=== PATIENT | male | born 1980 | race African-American/Black ===

== ENCOUNTER 2018-03-30 09:53 | Emergency (ER) | payer SELFPAY ==
[~2018-03-30] VITALS: Ht 167.6 cm; Wt 83.5 kg
[2018-03-30] MEDS ORDERED: TRAM50TA PO (10:03)
[2018-03-30] MEDS ORDERED: PENI500T PO (10:03)
[2018-03-30 10:10] VITALS: BP 149/99
[2018-03-30] MEDS ORDERED: HYDROcodone/APAP 5/325MG 1 TAB TABLET PO ONE (10:30)
--- NOTE | 2018-03-30 14:50 | ED.ADGEN ---
Past History Past Medical History: CAD, Other Past Surgical History: Angioplasty, Other Smoking: Cigarettes Alcohol Use: Occasionally Drug Use: None Adult General Chief Complaint Chief Complaint Left upper posterior dental pain HPI HPI Patient is a 37-year-old Afro-[place] male presents with left upper was tender molar pain, tenderness swelling. No dysphonia, dysphagia, drooling. No hoarseness. Patient states he has not follow-up with the dentist. [] Review of Systems Review of Systems Review symptoms as per history of present illness. All other systems were reviewed and found to be within normal limits, except as documented in this note. Current Medications Current Medications Current Medications Medications (Trade) Dose Ordered Sig/Kavitha Start Time Stop Time Status Last Admin Dose Admin Acetaminophen/ Hydrocodone Bitart (Lortab 5/325) 1 tab 1X ONCE 03/30/18 10:30 03/30/18 10:30 DC 03/30/18 10:16 1 TAB Allergies Allergies Allergies Coded Allergies Type Severity Reaction Last Updated Verified No Known Drug Allergies 01/23/16 No Physical Exam Physical Exam Constitutional: Well developed, well nourished, no acute distress, non-toxic appearance. [] HENT: Normocephalic, atraumatic, bilateral external ears normal, oropharynx moist, left upper posterior molar pain, tenderness with caries, nose normal. [] Eyes: PERRLA, EOMI, conjunctiva normal, no discharge. [] Neck: Normal range of motion. [] Cardiovascular:Heart rate regular rhythm, no murmur [] Lungs & Thorax: Bilateral breath sounds clear to auscultation [] Abdomen: Bowel sounds normal, soft, no tenderness. [] Skin: Warm, dry. [] Back: No tenderness. [] Neurologic: Alert and oriented X 3, normal motor function, normal sensory function, no focal deficits noted. [] Psychologic: Affect normal, judgement normal, mood normal. [] Current Patient Data Vital Signs Vital Signs Date Time Temp Pulse Resp B/P (MAP) Pulse Ox O2 Delivery O2 Flow Rate FiO2 03/30/18 10:16 18 99 Room Air 03/30/18 10:10 98.2 72 EKG EKG [] Radiology/Procedures Radiology/Procedures [] Course & Med Decision Making Course & Med Decision Making Pertinent Labs and Imaging studies reviewed. (See chart for details) [Abx given.] Final Impression Final Impression 1. Dental pain due to caries] Phani Disclaimer Phani Disclaimer This electronic medical record was generated, in whole or in part, using a voice recognition dictation system. PATI MENDEZ DO Mar 30, 2018 14:50
== END 2018-03-30 10:17 | disposition home or self-care (01) ==
LOC: ER 09:53
DX: K02.9 Dental caries, unspecified (principal); I25.10 Atherosclerotic heart disease of native coronary artery without angina pectoris; F17.210 Nicotine dependence, cigarettes, uncomplicated; Z98.61 Coronary angioplasty status
CPT/HCPCS: 99283

== ENCOUNTER 2018-05-01 09:45 | Emergency (ER) | payer MEDICAID ==
[~2018-05-01] VITALS: Ht 167.6 cm; Wt 84.4 kg
[~2018-05-01 09:45] MED LIST: PENI500T PO; TRAM50TA PO
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
[2018-05-01 10:11] LABS: AMPHETAMINE/METHAMPHETAMINE NEG (NEG); BARBITURATES NEG (NEG); BENZODIAZEPINES NEG (NEG); CANNABINOIDS NEG (NEG); COCAINE POS (NEG); METHADONE NEG (NEG); OPIATES NEG (NEG); PHENCYCLIDINE NEG (NEG)
[2018-05-01 10:20] LABS: BILIRUBIN,URINE NEG (NEG); CLARITY,URINE CLEAR; COLOR,URINE YELLOW; GLUCOSE,URINE NEG (NEG)
[2018-05-01 10:21] LABS: BACTERIA,URINE 0 /HPF (0-FEW); NITRITE,URINE NEG (NEG); SQUAMOUS EPITHELIAL CELL,UR OCC /LPF; UROBILINOGEN,URINE 0.2 mg/dL (0.2 mg/dL); WBC,URINE OCC /HPF (0-4)
[2018-05-01 10:31] LABS: BASO % 0 % (0-3); EOS # 0.1 x10^3/uL (0.0-0.7); EOS % 2 % (0-3); HEMATOCRIT 52.9 % (39.0-53.0); HEMOGLOBIN 17.9 g/dL (13.0-17.5); LYMPH # 1.8 x10^3/uL (1.0-4.8); LYMPH % 32 % (24-48); MEAN CORPUSCULAR HEMOGLOBIN 30 pg (25-35); MEAN CORPUSCULAR HGB CONC 34 g/dL (31-37); MEAN CORPUSCULAR VOLUME 90 fL (79-100); MONO # 0.5 x10^3/uL (0.0-1.1); MONO % 8 % (0-9); NEUT # 3.3 x10^3uL (1.8-7.7); NEUT % 58 % (31-73); PLATELET COUNT 224 x10^3/uL (140-400); RED BLOOD COUNT 5.89 x10^6/uL (4.30-5.70); RED CELL DISTRIBUTION WIDTH 14.4 % (11.5-14.5); WHITE BLOOD COUNT 5.6 x10^3/uL (4.0-11.0)
[2018-05-01 10:36] LABS: ALBUMIN 4.1 g/dL (3.4-5.0); CALCIUM 8.8 mg/dL (8.5-10.1); DIRECT BILIRUBIN 0.1 mg/dL (0.0-0.2); GFR 102.3; MAGNESIUM 2.2 mg/dL (1.8-2.4); POTASSIUM 3.6 mmol/L (3.5-5.1); TOTAL BILIRUBIN 0.2 mg/dL (0.2-1.0); TOTAL PROTEIN 8.2 g/dL (6.4-8.2)
[2018-05-01] MEDS: cloNIDine HCL 0.1 MG TABLET PO ONE (10:36)
[2018-05-01] MEDS ORDERED: TICA90TA PO (10:58)
[2018-05-01] MEDS ORDERED: ATOR40TA59 PO (10:58)
[2018-05-01] MEDS ORDERED: PANT40TA3 PO (10:58)
[2018-05-01] MEDS: MVI, ADULT NO.4 WITH VIT K 10 ML, FOLIC ACID SYRINGE for ER 1 MG, THIAMINE INJ 100 MG i... IV ONE ×4 (11:24)
[2018-05-01 11:29] VITALS: BP 140/92
[2018-05-01] MEDS: IV NORMAL SALINE 1,000ML 1,000 ML IV ONE (13:26)
[2018-05-01] MEDS: LORazepam 2 MG/ML VIAL IV ONE (13:54)
== END 2018-05-01 15:45 | disposition home or self-care (01) ==
LOC: ER 09:45
DX: F10.129 Alcohol abuse with intoxication, unspecified (principal); F17.210 Nicotine dependence, cigarettes, uncomplicated; F12.10 Cannabis abuse, uncomplicated; I25.10 Atherosclerotic heart disease of native coronary artery without angina pectoris; F31.9 Bipolar disorder, unspecified; F20.9 Schizophrenia, unspecified; Z98.61 Coronary angioplasty status; Z71.6 Tobacco abuse counseling; Y90.8 Blood alcohol level of 240 mg/100 ml or more
CPT/HCPCS: 36415; 80048; 80076; 80307; 81001; 83735; 85025; 96365; 96366; 96375; 99285; G0480; J2060; 99284-25; G0479; J7030

== ENCOUNTER → 2020-11-27 | Outpatient (CLI) | payer MEDICAID ==
[~2020-11-27] MED LIST changes: +ATOR40TA59 PO; +PANT40TA3 PO; +TICA90TA PO
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
== END ==
LOC: DXRAD 14:35
PROVIDERS: ATTEND Nurse Practitioner Family
DX: J90 Pleural effusion, not elsewhere classified (principal); J45.909 Unspecified asthma, uncomplicated
CPT/HCPCS: 71046

== ENCOUNTER 2020-12-29 11:39 | Emergency (ER) | payer MEDICAID ==
[~2020-12-29] VITALS: Ht 167.6 cm; Wt 90.0 kg
[2020-12-29] MEDS ORDERED: IPRATRPIUM/ALBUTEROL 0.5/2.5MG 3 ML NEBU. ONE (11:57)
[2020-12-29] MEDS ORDERED: predniSONE 20 MG TABLET PO ONE (12:15)
[2020-12-29] MEDS ORDERED: IPRATRPIUM/ALBUTEROL 0.5/2.5MG 3 ML NEBU. NEB ONE (12:15)
[2020-12-29] MEDS ORDERED: ALBUTEROL SULFATE 2.5 MG/3 ML NEBU. NEB ONE (12:30)
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
[2020-12-29] MEDS ORDERED: ALBU2.5V8 IH (12:57)
[2020-12-29] MEDS ORDERED: PRED20TA PO (12:57)
[2020-12-29 13:05] VITALS: BP 148/89
== END 2020-12-29 13:15 | disposition home or self-care (01) ==
LOC: ER 11:39
DX: J45.901 Unspecified asthma with (acute) exacerbation (principal); F17.210 Nicotine dependence, cigarettes, uncomplicated; Z91.013 Allergy to seafood
CPT/HCPCS: 71046; 94640; 99284; J7512; J7613